=== PATIENT | female | born 1975 | race Caucasian/White ===

== ENCOUNTER → 2023-03-02 10:39 | Outpatient (CLI) | payer MEDICARE, SELFPAY | PROVIDERS: PCP Emergency Medicine; Visit Provider Emergency Medicine | DX: Z79.899 Other long term (current) drug therapy (principal) ==

== ENCOUNTER → 2023-03-02 18:32 | Outpatient (CLI) | payer MEDICARE, SELFPAY ==
[2023-03-02 19:34] LABS: Amphetamine/Metha Screen,Urine Negative ng/ml (<1000); Barbiturates Screen,Urine Negative ng/ml (<200)
[2023-03-02 19:35] LABS: Benzodiazepines Screen,Urine Negative ng/ml (<200)
[2023-03-02 19:36] LABS: Cannabinoid Screen,Urine Positive ng/ml (<50); Cocaine Screen,Urine Negative ng/ml (<300)
[2023-03-02 19:37] LABS: Methadone Screen,Urine Negative ng/ml (<300)
[2023-03-02 19:38] LABS: Phencyclidine Screen,Urine Negative ng/ml (<25)
[2023-03-02 19:45] LABS: Opiate Screen,Urine Negative ng/ml (<300)
== END ==
PROVIDERS: PCP Emergency Medicine; Visit Provider Emergency Medicine
DX: Z79.899 Other long term (current) drug therapy (principal)
CPT/HCPCS: 80305

== ENCOUNTER → 2023-03-13 10:16 | Outpatient (CLI) | payer MEDICARE, SELFPAY ==
--- NOTE | 2023-03-13 10:16 | MM_ITS ---
PROCEDURE INFORMATION: Exam: Bilateral Screening 3D Mammography Exam date and time: 03/13/2023 10:15 AM Age: 47 years old Clinical indication: Screening examination TECHNIQUE: Imaging protocol: Bilateral Screening tomosynthesis and 2D mammography including computer-aided detection (CAD) when performed. COMPARISON: 1. MG MAMMO SCREENING DIGITAL [facility] 08/11/2016 2:41 PM 2. MG DIG MAMMO [place] [place] 12/23/2010 4:13 PM FINDINGS: MAMMOGRAPHY: Breast composition: There are scattered areas of fibroglandular density. Mass: None. Architectural distortion: None. Calcifications: No suspicious calcifications. Asymmetric density: None. Skin thickening: None. Axillary adenopathy: None. IMPRESSION: No mammographic evidence of malignancy. Annual screening is recommended unless otherwise clinically indicated. ASSESSMENT: BI-RADS Category 1: Negative
== END ==
PROVIDERS: PCP Emergency Medicine; Visit Provider Emergency Medicine
DX: Z12.31 Encounter for screening mammogram for malignant neoplasm of breast (principal)
CPT/HCPCS: 77063; 77067

== ENCOUNTER → 2023-05-08 23:25 | Outpatient (CLI) | payer MEDICARE, SELFPAY ==
[2023-05-08 19:15] LABS: Amphetamine/Metha Screen,Urine Negative ng/ml (<1000)
[2023-05-08 19:16] LABS: Barbiturates Screen,Urine Negative ng/ml (<200)
[2023-05-08 19:18] LABS: Benzodiazepines Screen,Urine Negative ng/ml (<200)
[2023-05-08 19:19] LABS: Cannabinoid Screen,Urine Positive ng/ml (<50); Cocaine Screen,Urine Negative ng/ml (<300)
[2023-05-08 19:20] LABS: Methadone Screen,Urine Negative ng/ml (<300); Opiate Screen,Urine Positive ng/ml (<300)
[2023-05-08 19:21] LABS: Phencyclidine Screen,Urine Negative ng/ml (<25)
== END ==
PROVIDERS: PCP Emergency Medicine; Visit Provider Emergency Medicine
DX: M79.7 Fibromyalgia (principal)
CPT/HCPCS: 80305

== ENCOUNTER → 2023-05-22 13:41 | Outpatient (CLI) | payer MEDICARE, SELFPAY ==
--- NOTE | 2023-05-22 13:41 | MR_ITS ---
FINAL REPORT CLINICAL HISTORY: knee pain WHEN WALKING. NO INJURY OR TRAUMA FINDINGS: Multiplanar MR imaging knee was performed without contrast. Moderate degenerative change is present in the knee. There is a tear of the anterior horn of the lateral meniscus with a small anterior parameniscal cyst. The anterior and posterior cruciate ligaments are intact. The medial collateral ligament and lateral ligamentous complex are intact. The patellar and quadriceps tendons are intact. There is no evidence of fracture. 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 A small joint effusion is seen. The musculature is intact. No soft tissue mass or cyst is identified. IMPRESSION: Tear anterior horn lateral meniscus with small anterior parameniscal cyst. Moderate degenerative change of the knee with [id number] chondromalacia and a small joint effusion. Reviewed, Interpreted and Dictated by Karl Crooks III, MD Transcribed by Aliyah Tinsley Authenticated and [facility]
== END ==
LOC: RAD 13:41
PROVIDERS: PCP Emergency Medicine; Visit Provider Emergency Medicine
DX: M25.562 Pain in left knee (principal)
CPT/HCPCS: 73721

== ENCOUNTER → 2023-05-31 08:15 | Outpatient (CLI) | payer MEDICARE, SELFPAY ==
--- NOTE | 2023-05-31 08:19 | XR_ITS ---
FINAL REPORT CLINICAL HISTORY: Lt knee pain, meniscus tear FINDINGS: LEFT KNEE SERIES Three views of the left knee were obtained. There is no acute fracture or dislocation. There is moderate degenerative change. There is no soft tissue abnormality. IMPRESSION: Moderate degenerative change. Reviewed, Interpreted and Dictated by Karl Crooks III, MD Transcribed by Keaton Kebede Authenticated and . [facility]
== END ==
LOC: RAD 08:16
PROVIDERS: PCP Emergency Medicine; Visit Provider Orthopaedic Surgery
DX: M25.562 Pain in left knee (principal); M23.92 Unspecified internal derangement of left knee
CPT/HCPCS: 73562

== ENCOUNTER → 2023-06-12 13:22 | Outpatient (CLI) | payer MEDICARE, SELFPAY ==
--- NOTE | 2023-06-12 13:33 | ECG_ITS ---
APPROVED REPORT Exam: Resting ECG HR:55 bpm ECG Measurements Heart Rate 55 AXES IA 134 P 40 QRSd 91 QRS 60 QT 391 T 35 QTc 380 Conclusion SINUS BRADYCARDIA WITH OCCASIONAL VENTRICULAR PREMATURE COMPLEXES MODERATE T-WAVE ABNORMALITY, CONSIDER ANTERIOR ISCHEMIA [-0.1+ mV T-WAVE IN V3/V4] ABNORMAL ECG UNCONFIRMED REPORT Electronically signed by : Daniel Partida MD 06/13/2023 21:20:04
--- NOTE | 2023-06-12 13:44 | XR_ITS ---
FINAL REPORT CLINICAL HISTORY: htn pre-op knee surgery FINDINGS: PA and lateral views of the chest are obtained. There is no prior exam for comparison. The cardiac and mediastinal silhouettes are within normal limits. There is evidence of granulomatous disease. The lungs are otherwise clear. There is no pleural effusion, pneumothorax, or acute osseous abnormality. IMPRESSION: No radiographic evidence of acute cardiac or pulmonary disease. Reviewed, Interpreted and Dictated by Nellie Ross MD Transcribed by Jassi Flowers Authenticated and [facility]
[2023-06-12 14:16] LABS: Basophils % 0.4 % (0.1-2.0); Eosinophils % 0.7 % (0.1-12.0); Hematocrit 41.9 % (37.0-47.0); Hemoglobin 13.2 g/dL (12.2-16.2); Lymphocytes # 0.7 K/mm3 (0.7-4.5); Lymphocytes % 13.7 % (10-50); Mean Corpuscular HGB Conc 31.6 g/dL (31.8-35.4); Mean Corpuscular Hemoglobin 30.6 pg (27.0-31.2); Mean Corpuscular Volume 96.7 fl (81-99); Mean Platelet Volume 8.8 fl (7.4-10.4); Monocytes # 0.1 K/mm3 (0.1-1.0); Monocytes % 1.8 % (1.7-9.3); Neutrophils # 4.4 K/mm3 (1.8-7.8); Neutrophils % 83.2 % (37.0-80.0); Platelet Count 260 K/mm3 (142-424); Red Blood Count 4.33 M/mm3 (4.20-5.40); Red Cell Distribution Width 14.3 % (11.5-17.5); White Blood Count 5.3 K/mm3 (4.8-10.8)
[2023-06-12 14:54] LABS: Alanine Aminotransferase 166 U/L (12-78); Albumin Level 4.3 g/dl (3.5-5.0); Albumin/Globulin Ratio 1.5 (1.1-1.8); Alkaline Phosphatase 230 U/L (38-126); Anion Gap 12.7 mEq/L (5-15); Aspartate Amino Transferase 158 U/L (14-36); Bilirubin,Total 0.9 mg/dl (0.2-1.3); Blood Urea Nitrogen 15 mg/dl (7-17); Calcium 9.5 mg/dl (8.4-10.2); Carbon Dioxide 23 mmol/L (22.0-30.0); Chloride 108 mmol/L (98-107); Estimated Glomerular Filt Rate 89 ml/min (>60); GFR (African American) 108 ML/MIN (>60); Globulin 2.8 g/dL (1.3-3.2); Glucose 123 mg/dl (74-100); Potassium 4.7 mmoL/L (3.5-5.1); Sodium 139 mmol/L (136-145); Total Protein,Serum 7.1 g/dl (6.3-8.2)
== END ==
LOC: LAB 13:24
PROVIDERS: PCP Emergency Medicine; Visit Provider Orthopaedic Surgery
DX: M25.462 Effusion, left knee (principal); M06.9 Rheumatoid arthritis, unspecified; S83.282A Other tear of lateral meniscus, current injury, left knee, initial encounter; M25.562 Pain in left knee
CPT/HCPCS: 36415; 71046; 80053; 85025; 93005

== ENCOUNTER → 2023-06-18 09:00 | Outpatient (CLI) | payer MEDICARE, SELFPAY ==
[2023-06-18 09:46] LABS: Basophils % 0.6 % (0.1-2.0); Eosinophils # 0.2 K/mm3 (0.0-0.4); Eosinophils % 4.9 % (0.1-12.0); Hematocrit 39.3 % (37.0-47.0); Hemoglobin 12.9 g/dL (12.2-16.2); Lymphocytes # 1.1 K/mm3 (0.7-4.5); Lymphocytes % 24.9 % (10-50); Mean Corpuscular HGB Conc 32.8 g/dL (31.8-35.4); Mean Corpuscular Hemoglobin 31.8 pg (27.0-31.2); Mean Corpuscular Volume 96.9 fl (81-99); Mean Platelet Volume 9.2 fl (7.4-10.4); Monocytes # 0.2 K/mm3 (0.1-1.0); Monocytes % 5.5 % (1.7-9.3); Neutrophils # 2.9 K/mm3 (1.8-7.8); Neutrophils % 64.1 % (37.0-80.0); Platelet Count 233 K/mm3 (142-424); Red Blood Count 4.06 M/mm3 (4.20-5.40); Red Cell Distribution Width 14.6 % (11.5-17.5); White Blood Count 4.5 K/mm3 (4.8-10.8)
[2023-06-18 10:49] LABS: Chloride 107 mmol/L (98-107); Potassium 4.4 mmoL/L (3.5-5.1); Sodium 140 mmol/L (136-145)
[2023-06-18 10:51] LABS: Blood Urea Nitrogen 9 mg/dl (7-17); Estimated Glomerular Filt Rate 77 ml/min (>60); GFR (African American) 93 ML/MIN (>60)
[2023-06-18 10:52] LABS: Alanine Aminotransferase 89 U/L (12-78); Albumin Level 3.9 g/dl (3.5-5.0); Alkaline Phosphatase 157 U/L (38-126); Anion Gap 12.4 mEq/L (5-15); Aspartate Amino Transferase 62 U/L (14-36); Bilirubin,Direct 0.2 mg/dl (0.0-0.4); Bilirubin,Indirect 0.5 mg/dL (0.0-0.9); Bilirubin,Total 0.7 mg/dl (0.2-1.3); Bilirubin,Unconjugated 0.5 mg/dL (0.0-1.1); Calcium 9.3 mg/dl (8.4-10.2); Carbon Dioxide 25 mmol/L (22.0-30.0); Chol/HDL Ratio 3.5 (1-3.5); Cholesterol 180 mg/dl (140-200); Glucose 88 mg/dl (74-100); HDL Cholesterol 51 mg/dl (40-60); Magnesium 1.8 mg/dl (1.6-2.3); Total Protein,Serum 6.6 g/dl (6.3-8.2); Triglycerides 177 mg/dl (30-150); VLDL Cholesterol 35 mg/dL (0-40)
[2023-06-18 11:03] LABS: Direct LDL Cholesterol 85.45 mg/dL (100-129)
[2023-06-18 11:10] LABS: Free T4 (Free Thyroxine) 1.09 ng/dl (0.78-2.19)
[2023-06-18 11:23] LABS: Thyroid Stimulating Hormone 1.14 uIU/mL (0.465-4.68)
== END ==
LOC: LAB 09:02
PROVIDERS: PCP Emergency Medicine; Visit Provider Nurse Practitioner
DX: M79.7 Fibromyalgia (principal); E78.5 Hyperlipidemia, unspecified; M06.9 Rheumatoid arthritis, unspecified; I10 Essential (primary) hypertension; I49.3 Ventricular premature depolarization
CPT/HCPCS: 36415; 80048; 80061; 80076; 83735; 84439; 84443; 85025; 93225; 93226

== ENCOUNTER → 2023-06-26 08:30 | Outpatient (CLI) | payer MEDICARE, SELFPAY ==
--- NOTE | 2023-06-26 08:32 | CA_ITS ---
APPROVED REPORT EXAM: Comprehensive 2D, Doppler, and color-flow Echocardiogram Bag Machine Adjuster: DEBBY Garza, RVS Ht: 5 ft 8 in Wt: 269lbs BSA: 2.32 HR: 63 bpm BP: 158/103 mmHg Rhythm: PVC's Indications: Abn EKG, frequent PVC's, HTN, Pre-op clearance 2D Dimensions LVDd 5.12 cm LVEF (Visual) 67.70 % LVDs 3.18 cm Aortic Root 3.02 cm Left Atrium 3.75 cm LVOT 2.07 cm (M/F) 1.5-2.5 M-Mode Dimensions RVDd 2.29 cm (0.9-2.6) LA Diam 3.78 cm (1.9-4.0) LVDd 4.32 cm (3.5-5.7) Ao Diam 3.15 cm (2.0-3.7) LVDs 3.07 cm (3.5-5.7) IVSd 1.00 cm (0.6-1.1) PWd 0.89 cm (0.6-1.1) EF (Teich) 56.00% EPSs 0.48 cm FS 28.90% EDV (Teich) 84.00 mL TAPSE 1.94 (<1.7) ESV (Teich) 37.00 mL LV Diastology E Decel Time 230.00 (160-240 msec) E/A Ratio 1.08 MED E' 7.30 (< 7 cm/sec) MED A' 8.70 cm/s E'/MED E' Ratio 7.63 (>14) LAT E' 9.50 (<10 cm/sec) LAT A' 7.30 cm/s E/LAT E' Ratio 5.86 (>14) Aortic Valve LVOT Max 109.00 (70-110 cm/s) LVOT VTI 21.97 cm AoV Peak Rudy. 119.00 (50-130 cm/s) AO Peak GR. 5.70 mmHg AO Mean GR. 2.90 (<5 mmHg) AO VTI 23.51 (18-25 cm) AMILCAR (VTI) 3.14 (2.5-4.5 cm2) Mitral Valve MV A Velocity 52.00 (40-130 cm/s) E/A Ratio 1.08 MV Decel. Time 230.00 (160-240 ms) Pulmonary Valve PV Peak Velocity 85.00 (50-150 cm/s) Tricuspid Valve TR P. Velocity 215.00 cm/s RAP Estimate 10.00 mmHg RVSP 28.50 mmHg Left Ventricle The left ventricle is normal size. The left ventricular systolic function is normal. The left ventricular ejection fraction is within the normal range. There is normal left ventricular wall thickness. There is normal LV segmental wall motion. The left ventricular diastolic function is normal. LVEF is 60%. Right Ventricle The right ventricle is normal size. The right ventricular systolic function is normal. Atria The left atrium size is normal. The right atrium size is normal. No Doppler evidence of interatrial shunt. Aortic Valve The aortic valve is trileaflet. The aortic valve opens well. There is no aortic valvular stenosis. No aortic regurgitation is present. Mitral Valve The mitral valve is normal in structure. No evidence of mitral valve stenosis. Trace mitral regurgitation. Tricuspid Valve The tricuspid valve leaflets are thin and pliable. Trace tricuspid regurgitation. RVSP is normal. Pulmonic Valve The pulmonary valve is normal in structure. Mild pulmonic regurgitation. Great Vessels The aortic root is normal in size. IVC is normal in size and collapses >50% with inspiration. Pericardium There is no pericardial effusion. Other Information Study Quality: Adequate Conclusion Normal biventricular systolic function. No significant valvular disease. Electronically signed by : Olamide Marx, 06/26/2023 18:16:13
== END ==
LOC: RT 08:30
PROVIDERS: PCP Emergency Medicine; Visit Provider Nurse Practitioner
DX: R06.00 Dyspnea, unspecified (principal)
CPT/HCPCS: 93306

== ENCOUNTER 2023-07-11 08:02 | Day surgery (SDC) | payer MEDICARE, SELFPAY ==
[2023-06-13 17:24] VITALS: BMI 39.4
--- NOTE | 2023-06-15 09:53 | SUR.PREOP ---
EKG reviewed with Patrick Oropeza and Royer Cheung CRNA. Requested that Cardiology review EKG for clearance. Carla in Dr. Duckworth's notified and will coordinate EKG review with cardiology.
[2023-07-11] VITALS (10 sets, daily range): BP systolic 117–149; BP diastolic 64–101; PULSE 66–81; RESP 16–18; TEMP 36.2–43; O2SAT 94–97; BMI 38.5
--- NOTE | 2023-07-11 08:50 | P.PNANES_ITS ---
[facility] Disclaimer: The information contained in this section may have been updated after the patient was seen, as this information can be updated by other users. 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 Anesthesia Checklist Patient Identification Patient Identification: Arm Band Structural Data Admitted From: Home Planned Operative Procedure/s: Left Knee Arthroscopy, Partial Lateral Meniscectomy Consent for Planned Operative Procedure(s) Verified: Yes Verified Documents: Surgical Consent and History and Physical NPO Status Verified Time NPO: 00:00 Additional verifications Anesthesia Reactions: No Hx Blood Transfusions: No Blood Transfusion Reaction: No Airway Assessment Mallampati Score:: Class II C-Spine Mobility Assessed: Yes TMJ Mobility Assessed: Yes Dentition: Good Dentition Neurological Assessment Level of Consciousness: Awake and Alert Anesthesia Plan Anesthesia Risk discussed: Yes Anesthesia Plan: Verified ASA Class: II Anesthesia Type: General
--- NOTE | 2023-07-11 10:15 | EXP.OP.NOTE ---
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 Left knee was marked with a yes and my initials. Transported operative suite. Placed upon the operating bed. General anesthesia ministered. Airway secured. Then the left leg was prepped and draped within the knee banegas. Once prepped and draped final operative timeout performed to identify proper patient procedure and extremity. Everyone involved the case agreed there were no counter indications beginning. Did receive preoperative antibiotics. Marking pen was used to kanwal the bony landmarks of the knee and standard portal sites. Esmarch was used to exsanguinate the extremity. Pneumatic tourniquet was inflated to 300 mmHg. Skin knife was used incise anterior lateral portal blunt with trocar was placed in the patellofemoral joint exchange with a camera. I swept directly into the medial joint line where the anterior medial portal was made under direct visualization with an 18-gauge spinal needle. This is exchanged with a probe. There was some fraying on the undersurface and articular surface of the femoral condyle and the medial point with some thinning of the meniscus but no displaced tear of the meniscus. Tensions brought to the intercondylar notch the ACL was seen and intact. Attention was swept to the lateral joint line within the lateral joint line there was a large complex macerated tear of the anterior horn of the lateral meniscus extending to the body of the lateral meniscus there is also a kissing lesion on the lateral femoral condyle where this torn tissue was rubbing directly on the femoral condyle. Using a combination of straight biter sucker shaver and electrocautery partial lateral meniscectomy was performed to stable rim. Knee was taken through flexion extension and this relieved the impingement and rubbing on the lateral femoral condyle. Scope into the medial and lateral gutters no further pathology was seen back into the patellofemoral joint where the patella did track midline in the trochlea however there is grade III chondromalacia of the trochlea with no loose harry cartilage. Camera was removed. Joint was drained. Local anesthesia infiltrated the portal sites. Skin closed with nylon stitch. Sterile dressing placed from toe to thigh. Patient waken anesthesia taken recovery in stable condition. Condition: stable Disposition: PACU Complications:: None apparent
--- NOTE | 2023-07-11 10:28 | EXP.ANES.I ---
[facility] Anesthesia Record Part I Anesthesia Record I Intake, IV Amount: 450 Hydration: Adequate Estimated blood loss (mL): 2 Urine output (mL): 0 Blood Products used (#): none Blood Pressure: 149/87 SaO2: 94 Pulse Rate: 81 Airway Patency: Patent Respiratory Rate: 18 Temperature: 97.9 F Patient is:: Drowsy and Stable Stable to PACU at:: 10:18
--- NOTE | 2023-07-12 08:29 | P.PNANES_ITS ---
[facility] Anesthesia Record Part II Anesthesia Record Part II Discharge Time: 10:58 Destination: Surgical Day Care (OP Surgery) PACU nurse assessment reviewed?: Yes Patient Condition:: Good Anesthesia Complications:: None Swallowing reflex intact?: Yes Airway Patency: Patent Cyanosis?: No Blood Pressure: 143/88 SaO2: 77 Respiratory Rate: 16 Pulse Rate: 96 Temperature: 97.9 F Mental Status: Alert & Oriented Pain level:: 3 Nausea and/or vomitting:: None Intake, IV Amount: 0 Hydration: Adequate
[2023-07-12 08:30] VITALS: BP 143/88; PULSE 96; RESP 16; TEMP 36.6; O2SAT 77
== END 2023-07-11 11:25 | disposition home or self-care (01) ==
PROVIDERS: PCP Emergency Medicine; Visit Provider Orthopaedic Surgery
PROC: (CPT 29870; principal; 2023-07-11 08:45)
DX: S83.282A Other tear of lateral meniscus, current injury, left knee, initial encounter (principal); M23.042 Cystic meniscus, anterior horn of lateral meniscus, left knee; I10 Essential (primary) hypertension; M17.12 Unilateral primary osteoarthritis, left knee; M25.462 Effusion, left knee; M23.92 Unspecified internal derangement of left knee; M23.242 Derangement of anterior horn of lateral meniscus due to old tear or injury, left knee
CPT/HCPCS: 27347; 29881; 96374; J2405

== ENCOUNTER → 2023-08-28 23:24 | Outpatient (CLI) | payer MEDICARE, SELFPAY | PROVIDERS: PCP Emergency Medicine; Visit Provider Internal Medicine | DX: R06.02 Shortness of breath (principal) | CPT/HCPCS: 87635 ==

== ENCOUNTER → 2023-09-26 13:30 | Outpatient (CLI) | payer MEDICARE, SELFPAY ==
[2023-09-26 17:35] LABS: Amphetamine/Metha Screen,Urine Negative ng/ml (<1000); Benzodiazepines Screen,Urine Negative ng/ml (<200)
[2023-09-26 17:36] LABS: Barbiturates Screen,Urine Negative ng/ml (<200)
[2023-09-26 17:37] LABS: Cannabinoid Screen,Urine Positive ng/ml (<50); Methadone Screen,Urine Negative ng/ml (<300)
[2023-09-26 17:38] LABS: Cocaine Screen,Urine Negative ng/ml (<300)
[2023-09-26 17:39] LABS: Opiate Screen,Urine Negative ng/ml (<300); Phencyclidine Screen,Urine Negative ng/ml (<25)
== END ==
PROVIDERS: PCP Emergency Medicine; Visit Provider Emergency Medicine
DX: Z79.899 Other long term (current) drug therapy (principal)
CPT/HCPCS: 80305

== ENCOUNTER → 2023-11-23 08:53 | Outpatient (CLI) | payer MEDICARE, SELFPAY ==
[2023-11-23 18:36] LABS: Amphetamine/Metha Screen,Urine Negative ng/ml (<1000); Barbiturates Screen,Urine Negative ng/ml (<200)
[2023-11-23 18:37] LABS: Benzodiazepines Screen,Urine Negative ng/ml (<200)
[2023-11-23 18:38] LABS: Cannabinoid Screen,Urine Positive ng/ml (<50); Cocaine Screen,Urine Negative ng/ml (<300)
[2023-11-23 18:39] LABS: Methadone Screen,Urine Negative ng/ml (<300)
[2023-11-23 18:40] LABS: Opiate Screen,Urine Negative ng/ml (<300); Phencyclidine Screen,Urine Negative ng/ml (<25)
[2023-11-29 15:11] LABS: Opiates Negative ng/mL (Cutoff=100)
== END ==
LOC: LAB.DROPOF 11-24 08:54
PROVIDERS: PCP Nurse Practitioner Family; Visit Provider Nurse Practitioner Family
DX: Z79.899 Other long term (current) drug therapy (principal)
CPT/HCPCS: 80307; 80361; G0480